=== PATIENT | female | born 1955 | race Caucasian/White ===

== ENCOUNTER 2024-11-13 09:17 | Outpatient (CLI) | payer BC, MEDICARE ==
[2024-11-13] MEDS ORDERED: Barium Sulfate 96% 176 GM BOT (xray ONLY) ONE (09:33)
[2024-11-13] MEDS ORDERED: E-Z-HD 98% W/W 340GM BOT (x-ray ONLY) ONE (09:33)
== END 2024-11-13 09:18 | disposition home or self-care (01) ==
LOC: RAD 09:17
PROVIDERS: ATTEND Specialist
DX: K21.9 Gastro-esophageal reflux disease without esophagitis (principal); Z98.84 Bariatric surgery status; Z98.890 Other specified postprocedural states
CPT/HCPCS: 74246

== ENCOUNTER 2025-01-17 08:56 | Outpatient (CLI) | payer BC, MEDICARE ==
[2025-01-17 09:43] LABS: #Basophils 0.03 10x3/uL (0.0-0.2); #Eosinophils Less than 0.03 10x3/uL (0.0-0.7); #Monocytes 0.62 10x3/uL (0.11-0.59); #Neutrophils 2.92 10x3/uL (1.40-6.50); %Basophils 0.5 % (0.0-1.0); %Eosinophils 0.3 % (0.0-10.0); %Lymphocytes 39.6 % (21.0-51.0); %Monocytes 10.4 % (0.0-10.0); %Neutrophils 49.0 % (42.0-75.0); Hematocrit 36.1 % (36.0-47.0); Hemoglobin 11.8 g/dL (12.0-16.0); Mean Corpuscular Hemoglobin 28.2 pg (27.0-31.0); Mean Corpuscular Volume 86.4 fL (78.0-98.0); Platelet Count 248 10x3/uL (130-400); Red Blood Cell (RBC) Count 4.18 mill/uL (4.20-5.40); White Blood Cell (WBC) Count 5.96 10x3/uL (4.8-10.8)
[2025-01-17 09:58] LABS: ALT (SGPT) 16 U/L (Less than 34); AST (SGOT) 27 U/L (11-34); Albumin 3.9 g/dL (3.1-4.5); Alkaline Phosphatase 83 U/L (40-110); Anion Gap 12 mmol/L (10-20); BUN (Urea Nitrogen) 15 mg/dL (9.8-20.1); Bilirubin, Total 0.3 mg/dL (0.3-1.2); Calc. Creatinine Clearance 0 mL/min (70-130); Calcium 9.6 mg/dL (7.8-10.44); Carbon Dioxide 24 mmol/L (23-31); Chloride 108 mmol/L (98-107); Globulin 3.2 g/dL (2.4-3.5); Glucose 96 mg/dL (80-115); Potassium 4.1 mmol/L (3.5-5.1); Sodium 140 mmol/L (136-145)
== END 2025-01-17 08:57 | disposition home or self-care (01) ==
LOC: LABBT 08:56
PROVIDERS: ATTEND Specialist
DX: Z01.818 Encounter for other preprocedural examination (principal); K21.9 Gastro-esophageal reflux disease without esophagitis
CPT/HCPCS: 80053; 83036; 85025; 93005; 93010

== ENCOUNTER 2025-01-17 12:30 | Inpatient (IN) | payer BC, MEDICARE ==
[2025-01-17 09:14] VITALS: BMI 35.7
[2025-01-22] MEDS ORDERED: CEFAZOLIN 2 GM VIAL ONE (06:39)
[2025-01-22] MEDS ORDERED: Heparin 5,000 UNITS/ML VIAL ONE (06:39)
[2025-01-22] MEDS ORDERED: Acetaminophen 500 MG TAB ONE (06:39)
[2025-01-22] MEDS ORDERED: Bupivacaine 0.25% HCL 30 ML VIAL ONE (06:42)
[2025-01-22] MEDS ORDERED: SUCCINYLCHOLINE/SOD CL,ISO/PF 200 MG/10 ML SYRINGE FS ONE (07:12)
[2025-01-22] MEDS ORDERED: Lidocaine 1% PF 5 ML VIAL ONE (07:12)
[2025-01-22] MEDS ORDERED: Ondansetron PF 4 MG/2 ML Vial ONE (07:12)
[2025-01-22] MEDS ORDERED: PHENYLEPHRINE-NS 100 MCG/ML 10 ML SYRINGE ONE (07:12)
[2025-01-22] MEDS ORDERED: Glycopyrrolate 0.2 MG/ML 5 ML SYRINGE ONE (07:12)
[2025-01-22] MEDS ORDERED: fentaNYL PF 100 MCG/2 ML SYRINGE ONE (07:12)
[2025-01-22] MEDS ORDERED: Rocuronium Bromide 10 MG/ML (10ML VIAL) ONE ×2 (07:12→10:50)
[2025-01-22] MEDS ORDERED: Lidocaine 2% 6 ML (Jelly) SYR ONE (07:14)
[2025-01-22] MEDS ORDERED: Albuterol HFA (OR) 200 PUFF INH ONE (08:11)
[2025-01-22] MEDS ORDERED: HYDROmorphone 2 MG/ML VIAL ONE (08:23)
[2025-01-22] MEDS ORDERED: SUGAMMADEX SODIUM 200 MG/2 ML VIAL ONE ×2 (11:07)
[2025-01-22] MEDS ORDERED: Dextrose 50% Abboject 50 ML SYRINGE SLOW IVP PRN (14:17)
[2025-01-22] MEDS ORDERED: hydrALAZINE 20 MG/ML VIAL SLOW IVP PRN (14:17)
[2025-01-22] MEDS ORDERED: Glucagon 1 MG/ML KIT IM PRN (14:17)
[2025-01-22] MEDS ORDERED: diphenhydrAMINE 50 MG/ML VIAL IVP PRN (14:17)
[2025-01-22] MEDS ORDERED: oxyCODONE 5 MG TAB PO PRN (14:17)
[2025-01-22] MEDS ORDERED: Ondansetron PF 4 MG/2 ML Vial IVP PRN (14:17)
[2025-01-22] MEDS: Ketorolac Tromethamine 30 MG (1 mL) VIAL IVP SCH (15:30)
[2025-01-22] MEDS: D5 1/2 NS w/20 mEq KCL 1,000 ML IV SCH (16:57)
[2025-01-22] MEDS: Melatonin 3 MG TAB PO SCH (21:29)
[2025-01-22] MEDS: Gabapentin 100 MG CAP PO SCH (21:29)
[2025-01-23 04:51] LABS: #Basophils 0.04 10x3/uL (0.0-0.2); #Eosinophils 0.03 10x3/uL (0.0-0.7); #Monocytes 0.78 10x3/uL (0.11-0.59); #Neutrophils 8.31 10x3/uL (1.40-6.50); %Basophils 0.4 % (0.0-1.0); %Eosinophils 0.3 % (0.0-10.0); %Lymphocytes 16.3 % (21.0-51.0); %Monocytes 7.1 % (0.0-10.0); %Neutrophils 75.6 % (42.0-75.0); Hematocrit 32.2 % (36.0-47.0); Hemoglobin 10.5 g/dL (12.0-16.0); Mean Corpuscular Hemoglobin 28.2 pg (27.0-31.0); Mean Corpuscular Volume 86.6 fL (78.0-98.0); Platelet Count 238 10x3/uL (130-400); Red Blood Cell (RBC) Count 3.72 mill/uL (4.20-5.40); White Blood Cell (WBC) Count 10.98 10x3/uL (4.8-10.8)
[2025-01-23 05:15] LABS: Anion Gap 9 mmol/L (10-20); BUN (Urea Nitrogen) 11 mg/dL (9.8-20.1); Calc. Creatinine Clearance 78 mL/min (70-130); Calcium 8.6 mg/dL (7.8-10.44); Carbon Dioxide 24 mmol/L (23-31); Chloride 109 mmol/L (98-107); Glucose 141 mg/dL (80-115); Potassium 4.0 mmol/L (3.5-5.1); Sodium 138 mmol/L (136-145)
[2025-01-23] MEDS: Enoxaparin 40 MG (0.4 mL) SYRINGE SC SCH (09:37)
[2025-01-23] MEDS: Pantoprazole 40 MG VIAL IVP SCH (09:38)
[2025-01-23 12:15] VITALS: BP 145/85; TEMP 97.9
== END 2025-01-23 14:18 | disposition home or self-care (01) | DRG 328 ==
LOC: SURG A 01-22 06:07
PROVIDERS: ADMIT Specialist; ATTEND Specialist
PROC: 0D160ZA Bypass Stomach to Jejunum, Open Approach (ICD-10-PCS; principal; 2025-01-22)
PROC: 0DB60Z3 Excision of Stomach, Open Approach, Vertical (ICD-10-PCS; 2025-01-22)
PROC: 0DNU0ZZ Release Omentum, Open Approach (ICD-10-PCS; 2025-01-22)
PROC: 8E0W4CZ Robotic Assisted Procedure of Trunk Region, Percutaneous Endoscopic Approach (ICD-10-PCS; 2025-01-22)
DX: K21.9 Gastro-esophageal reflux disease without esophagitis (principal); Z90.710 Acquired absence of both cervix and uterus; Z90.49 Acquired absence of other specified parts of digestive tract; Z98.890 Other specified postprocedural states; Z90.5 Acquired absence of kidney
CPT/HCPCS: 36415; 80048; 85025; J0169; J0665; J1100; J1171; J1644; J1650; J1885; J2250; J2405; J2470; J3480; S2900